=== PATIENT | male | born 1995 | race African-American/Black ===

== ENCOUNTER 2017-10-24 21:21 | Emergency (ER) | payer SELFPAY ==
[2017-10-24 21:29] VITALS: BP 128/74; BMI 23.6
--- NOTE | 2017-10-24 22:06 | DR.GENAD ---
HPI - PCP Primary Care Physician: NFD - HPI Comment HPI Comment: GETTING WORSE. NAUSEATED BUT NO VOMITING. - Complaint/Symptoms Chief Complaint Doctors Comments: FEVER, ABDOMINAL PAIN, DIARRHEA AND GI BLEEDING WITH SORE THROAT TIMES ONE WEEK. Chief Complaint:: FEVER, DIARRHEA X 1 WEEK, Self Treatment fo Chief Complaint: THERA FLU - Nurses notes reviewed Nurses Notes Review: Yes - Source History Provided: Patient - Mode of Arrival Mode of Arrival: Ambulatory - Timing Onset of Chief Complaint: 10/17/17 Came on: Suddenly - Duration Duration: Constant Duration: Days - Severity Severity: Moderate PMH - PMH Past Medical History: No Past Surgical History: No - Family History History of Family Medical Conditions: No - Social History Does patient currently use any type of tobacco product: Yes Have you used tobacco products in the last 12 months: Yes Type of Tobacco Use: Cigarettes Does any household member use tobacco: No Alcohol Use: Occasionally Do you use any recreational Drugs:: No Lives With: Friend Lives Where: Home - infectious screening In the last 2 months have you had wt loss of >10#?: NO Have you had fever, night sweats or hemotysis?: No Have you traveled outside the country in the last 6 months?: No Isolation: Standard ROS - Review of Systems Constitutional: Chills, Fever, Weakness, Fatigue Eyes: No Symptoms Reported. negative: Eye Pain, Discharge ENTM: negative: Ear Pain, Nose Discharge, Nose Congestion, Throat Pain Respiratoy: negative: Productive Cough, Short of Breath, Wheezing, Hemoptysis Cardiovascular: negative: Chest Pain, Edema Gastrointestinal/Abdominal: Abdominal Pain. negative: Diarrhea Genitourinary: No Symptoms Reported. negative: Dysuria, Frequency, Hematuria Neurological: Headache, Weakness, Dizziness Musculoskeletal: No Symptoms Reported Integumentary: No Symptoms Reported Hematologic/Lymphatic: No Symptoms Reported Endocrine: No Symptoms Reported All Other Systems: Reviewed and Negative PE - Vital Signs Vitals: Temperature 101.3 F Pulse Rate 98 Respiratory Rate 18 Blood Pressure 128/74 O2 Sat by Pulse Oximetry 99 - General Limitations: No Limitations General Appearance: Alert - Head Head Exam: Normal Inspection - Eyes Eye exam: Normal Appearance - ENT ENT Exam: Normal External Ear Exam External Ear Exam: Normal External Inspection TM/Canal Exam: Bilateral Normal Nose Exam: Normal Nose Exam Mouth Exam: Normal Inspection Throat Exam: Normal Inspection - Neck Neck Exam: Trachea Midline - Chest Chest Inspection: Symmetric Chest Wall Rise - Respiratory Respiratory Exam: Normal Lung Sounds Bilat Respiratory Exam: Bilateral Clear to Auscultation - Cardiovascular Cardiovascular Exam: Regular Rate, Normal Rhythm, Normal Heart Sounds - Abdominal Exam Abdominal Exam: Normal Bowel Sounds, Soft, Tenderness Abdominal Tenderness: Diffuse, Moderate - Extremities Extremities Exam: Normal Inspection - Back Back Exam: Normal Inspection - Neurologic Neurological Exam: Alert, Oriented X3 - Psychiatric Psychiatric Exam: Normal Affect, Normal Mood - Skin Skin Exam: Normal Color [facility] - Additional Information Additional Information Obtained From: Family - Differential Diagnosis Differential Diagnosis: ABDOMINAL PAIN, DIARRHEA, FEVER Course - Treatment Treatment: SEE ORDERS. - Education/Counseling Education/Counseling: Patient, Family, Education Educated On: Diagnosis, Needs for Follow Up ROR - Labs Reviewed Result Diagrams: 10/24/17 22:05 10/24/17 22:05 Laboratory: WBC 4.7 X10^3/uL (3.6-10.0) 10/24/17 22:05 RBC 6.50 X10^6/uL (4.7-6.0) H 10/24/17 22:05 Hgb 15.2 g/dL (13.5-18.0) 10/24/17 22:05 Hct 45.9 % (42.0-54.0) 10/24/17 22:05 MCV 70.5 fL (80.0-100.0) L 10/24/17 22:05 MCH 23.4 pg (27.0-34.0) L 10/24/17 22:05 MCHC 33.2 g/dL (33.0-35.0) 10/24/17 22:05 RDW 17.0 % (11.6-16.5) H 10/24/17 22:05 Plt Count 121 X10^3/uL (150.0-450.0) L 10/24/17 22:05 Plt Count Comment Adequate (ADEQUATE) 10/24/17 22:05 MPV 8.7 fL (7.4-11.0) 10/24/17 22:05 Neut % (Auto) 28.7 % (42.0-75.0) L 10/24/17 22:05 Lymph % (Auto) 58.3 % (21.0-51.0) H 10/24/17 22:05 [place] % (Auto) 12.3 % (0.0-13.0) 10/24/17 22:05 Eos % (Auto) 0.0 % (0.9-2.9) L 10/24/17 22:05 Baso % (Auto) 0.7 % (0.2-1.0) 10/24/17 22:05 Neut # (Auto) 1.3 x10^3/uL (2.2-4.8) L 10/24/17 22:05 Lymph # (Auto) 2.7 X10^3/uL (1.3-2.9) 10/24/17 22:05 [place] # (Auto) 0.6 x10^3/uL (0.3-0.8) 10/24/17 22:05 Eos # (Auto) 0.0 x10^3/uL (0.0-0.2) 10/24/17 22:05 Baso # (Auto) 0.0 X10^3/uL (0.0-0.1) 10/24/17 22:05 Absolute Nucleated RBC 0.2 /100WBC 10/24/17 22:05 Plt Morphology Comment Normal (NORMAL) 10/24/17 22:05 RBC Morphology Abnormal (NORMAL) 10/24/17 22:05 Hypochromasia 1+ A 10/24/17 22:05 Anisocytosis Slight A 10/24/17 22:05 Microcytosis Slight A 10/24/17 22:05 Sodium 138 mmol/L (136-145) 10/24/17 22:05 Corrected Sodium TNP 10/24/17 22:05 Potassium 3.8 mmol/L (3.5-5.1) 10/24/17 22:05 Chloride 102 mmol/L (98-107) 10/24/17 22:05 Carbon Dioxide 26.7 mmol/L (21-32) 10/24/17 22:05 BUN 13 mg/dL (7-18) 10/24/17 22:05 Creatinine 1.11 mg/dL (0.70-1.30) 10/24/17 22:05 Est GFR (MDRD) Af Amer > 60 (>60) 10/24/17 22:05 Est GFR (MDRD) Non-Af > 60 (>60) 10/24/17 22:05 Glucose 98 mg/dL (65-99) 10/24/17 22:05 Calcium 7.9 mg/dL (8.5-10.1) L 10/24/17 22:05 Corrected Calcium TNP 10/24/17 22: Total Bilirubin 0.20 mg/dL (0.2-1.0) 10/24/17 22:05 AST 24 Units/L (15-37) 10/24/17 22:05 ALT 18 Units/L (12-78) 10/24/17 22:05 Alkaline Phosphatase 54 Units/L (46-116) 10/24/17 22:05 Total Protein 7.7 g/dL (6.4-8.2) 10/24/17 22: Albumin 3.5 g/dL (3.4-5.0) 10/24/17 22: Globulin 4.2 g/dL (2.5-4.5) 10/24/17 22:05 Albumin/Globulin Ratio 0.8 Ratio (1.1-2.1) L 10/24/17 22:05 Specimen Type Clean catch urine 10/24/17 22: Urine Color Yellow (YELLOW) 10/24/17 22: Urine Appearance Clear (CLEAR) 10/24/17 22: Urine pH 6.0 (5.0 - 8.0) 10/24/17: Ur Specific [place] 1.020 (1.000-1.030) 10/24/17 22: Urine Protein 2+ (NEGATIVE) 10/24/17 22: Urine Glucose (UA) Negative (NEGATIVE) 10/24/17: Urine Ketones Negative (NEGATIVE) 10/24/17 22: Urine Occult Blood 2+ (NEGATIVE) 10/24/17 22: Urine Nitrite Negative (NEGATIVE) 10/24/17 22: Urine Bilirubin Negative (NEGATIVE) 10/24/17 22: Urine Urobilinogen Normal (NORMAL) 10/24/17: Ur Leukocyte Esterase Negative (NEGATIVE) 10/24/17 22: Urine RBC 0-2 /HPF (NONE SEEN) 10/24/17 22:29 Urine WBC 0-2 /HPF (NONE SEEN) 10/24/17 22: Ur Squamous Epith Cells Few /HPF (NEGATIVE) 10/24/17 22: Urine Bacteria Trace /HPF (NEGATIVE) 10/24/17 22:29 Urine Mucus Moderate /HPF (NEGATIVE) 10/24/17 22:29 Ur Culture Indicated? No/not indicated 10/24/17 22:29 Stool Description 5g,bloody,unformed 10/24/17 22:29 Stl Occult Blood (IFOB) Positive (NEGATIVE) A 10/24/17 22:29 Influenza Type A (PCR) Negative (NEGATIVE) 10/24/17 23:29 Influenza Type B (PCR) Negative (NEGATIVE) 10/24/17 23:29 S. pyogenes (TEM-PCR) Detected (NOT DETECT) A 10/24/17 23:29 - Diagnosis Discharge Problem: GI bleeding, Diarrhea, Strep pharyngitis - Discharge Plan Disposition: 01 HOME, SELF-CARE Condition: Stable Prescriptions: Amoxicillin [Amoxil 875 mg] 875 mg PO Q12H #20 tab Ranitidine HCl [ZANTAC TAB 150 MG *] 150 mg PO BID #60 tab - Follow ups/Referrals Follow ups/Referrals: MARY DELEON [STAFF PHYSICIAN] - 2 days ZBIGNIEW GAMBOA [STAFF PHYSICIAN] - 2 days NFD,None [Primary Care Provider] - 2 days - Instructions Instructions: Diarrhea, Adult, Strep Throat, Gastrointestinal Bleeding, Easy-to -Read Additional Instructions: RETURN TO ED IF WORSE.
[2017-10-24 22:12] LABS: BASOPHILS % (AUTO) 0.7 % (0.2-1.0); HEMATOCRIT 45.9 % (42.0-54.0); HEMOGLOBIN 15.2 g/dL (13.5-18.0); LYMPHOCYTES # (AUTO) 2.7 X10^3/uL (1.3-2.9); LYMPHOCYTES % (AUTO) 58.3 % (21.0-51.0); MEAN CORPUSCULAR HEMOGLOBIN 23.4 pg (27.0-34.0); MEAN CORPUSCULAR HGB CONC 33.2 g/dL (33.0-35.0); MEAN CORPUSCULAR VOLUME 70.5 fL (80.0-100.0); MEAN PLATELET VOLUME 8.7 fL (7.4-11.0); MONOCYTES # (AUTO) 0.6 x10^3/uL (0.3-0.8); MONOCYTES % (AUTO) 12.3 % (0.0-13.0); NEUTROPHILS # (AUTO) 1.3 x10^3/uL (2.2-4.8); NEUTROPHILS % (AUTO) 28.7 % (42.0-75.0); PLATELET COUNT 121 X10^3/uL (150.0-450.0); WHITE BLOOD COUNT 4.7 X10^3/uL (3.6-10.0)
--- NOTE | 2017-10-24 22:19 | RAD ---
Acute abdominal series Indication: Fever with diarrhea Comparison: None available Findings: The trachea is midline. The cardiac silhouette is unremarkable. The lungs are clear without focal i nfiltrate or effusion. The bony thorax is unremarkable. Flat and upright evaluation of the abdomen demonstrates a normal bowel gas pattern. No pathological soft tissue mass or calcification can be observed. The bony structures are grossly intact. IMPRESSION: 1. No acute cardiopulmonary disease. 2. No evidence for acute abdominal pathology identified. Reported By:
[2017-10-24 22:25] LABS: ALANINE AMINOTRANSFERASE 18 Units/L (12-78); ALBUMIN 3.5 g/dL (3.4-5.0); ALKALINE PHOSPHATASE 54 Units/L (46-116); ASPARTATE AMINO TRANSFERASE 24 Units/L (15-37); BLOOD UREA NITROGEN 13 mg/dL (7-18); CALCIUM 7.9 mg/dL (8.5-10.1); CARBON DIOXIDE 26.7 mmol/L (21-32); CHLORIDE 102 mmol/L (98-107); CREATININE 1.11 mg/dL (0.70-1.30); SODIUM 138 mmol/L (136-145); TOTAL PROTEIN 7.7 g/dL (6.4-8.2); eGFR BLACK RACES > 60 (>60); eGFR NON BLACK RACES > 60 (>60)
[2017-10-24 22:41] LABS: BILIRUBIN,URINE NEGATIVE (NEGATIVE); BLOOD/HEMOGLOBIN,URINE 2+ (NEGATIVE); GLUCOSE, URINE NEGATIVE (NEGATIVE); KETONES,URINE NEGATIVE (NEGATIVE); LEUKOCYTE ESTERASE ,URINE NEGATIVE (NEGATIVE); NITRITES,URINE NEGATIVE (NEGATIVE); PROTEIN,URINE 2+ (NEGATIVE); UROBILINOGEN,URINE NORMAL (NORMAL)
[2017-10-24 22:44] LABS: ANISOCYTOSIS SLIGHT; HYPOCHROMASIA 1+; MICROCYTOSIS SLIGHT; PLATELET MORPHOLOGY COMMENT NORMAL (NORMAL)
[2017-10-24 22:50] LABS: APPEARANCE,URINE CLEAR (CLEAR); BACTERIA,URINE TRACE /HPF (NEGATIVE); COLOR,URINE YELLOW (YELLOW); MUCUS,URINE MODERATE /HPF (NEGATIVE); RBC,URINE 0-2 /HPF (NONE SEEN); SQUAMOUS EPITHELIAL CELL,UR FEW /HPF (NEGATIVE)
[2017-10-24] MEDS ORDERED: TYLENOL 500 MG TAB EXTRA STRENGTH PO ONE ×2 (23:11→23:12)
[2017-10-25] MEDS ORDERED: AMOXIL CAP 500 MG PO ONE ×2 (00:40→00:42)
[2017-10-25] MEDS ORDERED: ZANTAC PO ONE ×2 (00:43)
== END 2017-10-25 00:55 | disposition home or self-care (01) ==
LOC: ER 21:32
DX: K92.2 Gastrointestinal hemorrhage, unspecified (principal); R19.7 Diarrhea, unspecified; J02.0 Streptococcal pharyngitis
CPT/HCPCS: 36415; 74022; 80053; 81001; 82274; 85025; 87502; 87651; 99283